=== PATIENT | male | born 1950 | race Caucasian/White ===

== ENCOUNTER 2016-05-02 07:57 | Outpatient (CLI) | payer OTHER ==
[2016-05-02 08:17] LABS: Hematocrit 44.2 % (42.0-52.0); Mean Platelet Volume 7.4 fL (7.4-10.4); Red Blood Cell (RBC) Count 4.85 mill/uL (4.70-6.10); White Blood Cell (WBC) Count 7.6 thou/uL (4.8-10.8)
[2016-05-02 08:33] LABS: ALT (SGPT) 11 U/L (0-55); AST (SGOT) 15 U/L (5-34); Alkaline Phosphatase 124 U/L (40-150); Anion Gap 13 mmol/L (10-20); BUN (Urea Nitrogen) 14 mg/dL (8.4-25.7); Bilirubin, Total 0.6 mg/dL (0.2-1.2); Calc. Creatinine Clearance 0 mL/min (70-130); Calcium 9.9 mg/dL (7.8-10.44); Carbon Dioxide 30 mmol/L (23-31); Chloride 102 mmol/L (98-107); Estimated GFR-MDRD 76; Globulin 3.2 g/dL (2.4-3.5); Protein, Total 7.4 g/dL (5.8-8.1)
== END 2016-05-02 07:58 | disposition home or self-care (01) ==
LOC: BURLAB 07:57
PROVIDERS: ATTEND Physician Assistant Medical
DX: B18.2 Chronic viral hepatitis C (principal)
CPT/HCPCS: 36415; 80053; 85027

== ENCOUNTER 2016-05-05 07:55 | Outpatient (CLI) | payer OTHER ==
--- NOTE | 2016-05-07 08:43 | MRI ---
MRI BRAIN WITH AND WITHOUT CONTRAST: Multiplanar, multisequential imaging of brain obtained. Postcontrast images obtained after administ ering IV MultiHance. Internal auditory canal protocol was followed. HISTORY: Asymmetric hearing loss. FINDINGS: Ventricles have normal size and position. No evidence of restricted diffusion. There are a few scattered white matter hyperintensities seen on FLAIR sequence which are unremarkabl e in a patient of this age, possibly representing mild ischemic white matter change. No evidence of infarct or mass. Images through the internal auditory canals show normal-appearing 7th and 8th cranial nerves. There is no abnormal enhancement. There is no evidence of acoustic schwannoma or other cerebellopontine angle mass lesion. The intracranial internal carotid arteries and proximal cerebral arteries show normal flow voids. The paranasal sinuses and mastoids appear clear. IMPRESSION: Unremarkable MRI of brain. Specifically, internal auditory canals are unremarkable with no evidence of acoustic schwannoma identified. POS: LM
== END 2016-05-05 07:56 | disposition home or self-care (01) ==
LOC: BURMRI 07:55
PROVIDERS: ATTEND Otolaryngology Plastic Surgery within the Head & Neck
DX: H90.5 Unspecified sensorineural hearing loss (principal)
CPT/HCPCS: 70553

== ENCOUNTER 2016-06-02 08:39 | Outpatient (CLI) | payer OTHER ==
[2016-06-02 09:24] LABS: Hematocrit 43.6 % (42.0-52.0); Mean Platelet Volume 7.7 fL (7.4-10.4); Red Blood Cell (RBC) Count 4.87 mill/uL (4.70-6.10); White Blood Cell (WBC) Count 7.8 thou/uL (4.8-10.8)
[2016-06-02 09:45] LABS: ALT (SGPT) 13 U/L (0-55); AST (SGOT) 16 U/L (5-34); Alkaline Phosphatase 128 U/L (40-150); Anion Gap 12 mmol/L (10-20); BUN (Urea Nitrogen) 16 mg/dL (8.4-25.7); Bilirubin, Total 0.4 mg/dL (0.2-1.2); Calc. Creatinine Clearance 0 mL/min (70-130); Calcium 9.5 mg/dL (7.8-10.44); Carbon Dioxide 28 mmol/L (23-31); Chloride 105 mmol/L (98-107); Estimated GFR-MDRD 87
[2016-06-02 10:46] LABS: Globulin 3.2 g/dL (2.4-3.5); Protein, Total 7.4 g/dL (5.8-8.1)
== END 2016-06-02 08:40 | disposition home or self-care (01) ==
LOC: BURLAB 08:39
PROVIDERS: ATTEND Physician Assistant Medical
DX: B18.2 Chronic viral hepatitis C (principal)
CPT/HCPCS: 36415; 80053; 85027; 87522

== ENCOUNTER 2016-08-25 08:55 | Outpatient (CLI) | payer OTHER | END 2016-08-25 08:56 | disposition home or self-care (01) | LOC: BURLAB 08:55 | PROVIDERS: ATTEND Physician Assistant Medical | DX: B18.2 Chronic viral hepatitis C (principal) | CPT/HCPCS: 36415; 87522 ==

== ENCOUNTER 2016-10-30 08:18 | Outpatient (CLI) | payer OTHER ==
[2016-10-30 18:59] LABS: Hep B Surf AB Non-Reactive (NonReactive)
== END 2016-10-30 08:19 | disposition home or self-care (01) ==
LOC: BURLAB 08:18
PROVIDERS: ATTEND Internal Medicine Gastroenterology
DX: B18.2 Chronic viral hepatitis C (principal)
CPT/HCPCS: 36415; 86706; 86708

== ENCOUNTER 2016-11-20 08:44 | Outpatient (CLI) | payer BC ==
[2016-11-20 17:33] LABS: HBSAg Index 0.21 S/CO (0-0.99); Hep B Surf Ag Non-Reactive S/CO (NonReactive)
== END 2016-11-20 08:45 | disposition home or self-care (01) ==
LOC: BURLAB 08:44
PROVIDERS: ATTEND Internal Medicine Gastroenterology
DX: B18.2 Chronic viral hepatitis C (principal)
CPT/HCPCS: 36415; 87340

== ENCOUNTER 2018-05-08 20:30 | Emergency (ER) | payer MEDICARE ==
[2018-05-08] MEDS ORDERED: Sulfameth/Trimethoprim DS 800-160mg TAB ONE (21:16)
== END 2018-05-08 21:25 | disposition home or self-care (01) ==
LOC: BURERS 20:30
DX: L02.811 Cutaneous abscess of head [any part, except face] (principal); K21.9 Gastro-esophageal reflux disease without esophagitis; I10 Essential (primary) hypertension; Z87.891 Personal history of nicotine dependence; Z79.899 Other long term (current) drug therapy
CPT/HCPCS: 10061; 87070; 87077; 87186; 87205

== ENCOUNTER 2018-10-20 09:07 | Outpatient (CLI) | payer MEDICARE ==
--- NOTE | 2018-10-25 07:42 | RAD ---
RIGHT HIP TWO VIEWS: 10/20/18 No fracture was seen. The joint space is somewhat narrow and there is a little bit of sclerosis on th e acetabular side of the joint. The articular surface of the femoral head is smooth. IMPRESSION: Mild arthritic change. POS: HOME
--- NOTE | 2018-10-25 07:44 | RAD ---
LEFT HIP TWO VIEWS: 10/20/18 No fracture or dislocation was seen. There is very minor joint space narrowing but really very little arthritic change overall. IMPRESSION: No acute finding. POS: HOME
== END 2018-10-20 09:08 | disposition home or self-care (01) ==
LOC: BURRAD 09:07
PROVIDERS: ATTEND Family Medicine
DX: M25.551 Pain in right hip (principal); M25.552 Pain in left hip; M16.12 Unilateral primary osteoarthritis, left hip

== ENCOUNTER 2020-11-20 13:31 | Emergency (ER) | payer MEDICARE ==
[~2020-11-20 13:31] MED LIST: Iopamidol 370 76% 100 ML VIAL ONE
[2020-11-20 13:54] LABS: #Basophils 0.1 thou/uL (0.0-0.2); #Eosinphils 0.2 thou/uL (0.0-0.7); #Lymphocytes 1.5 thou/uL (1.20-3.40); #Monocytes 0.8 thou/uL (0.11-0.59); #Neutrophils 5.8 thou/uL (1.40-6.50); %Basophils 1.6 % (0.0-1.0); %Eosinophils 2.6 % (0.0-10.0); %Lymphocytes 17.8 % (21.0-51.0); %Monocytes 9.8 % (0.0-10.0); %Neutrophils 68.2 % (42.0-75.0); Hemoglobin 14.9 g/dL (14.0-18.0); Mean Corpuscular HGB CONC 33.5 g/dL (32.0-36.0); Mean Corpuscular Hemoglobin 30.5 pg (27.0-31.0); Mean Corpuscular Volume 91.1 fL (78.0-98.0); Mean Platelet Volume 8.8 fL (7.4-10.4); Platelet Count 247 thou/uL (130-400); RBC Distribution Width 11.7 % (11.5-14.5); Red Blood Cell (RBC) Count 4.88 mill/uL (4.70-6.10); White Blood Cell (WBC) Count 8.5 thou/uL (4.8-10.8)
[2020-11-20] MEDS ORDERED: Ondansetron PF 4 MG/2 ML Vial ONE (13:54)
[2020-11-20 14:13] LABS: ALT (SGPT) 14 U/L (8-55); AST (SGOT) 15 U/L (5-34); Albumin 4.1 g/dL (3.4-4.8); Alkaline Phosphatase 109 U/L (40-110); Anion Gap 13 mmol/L (10-20); BUN (Urea Nitrogen) 15 mg/dL (8.4-25.7); Bilirubin, Total 0.4 mg/dL (0.2-1.2); Calc. Creatinine Clearance 0 mL/min (70-130); Calcium 9.4 mg/dL (7.8-10.44); Carbon Dioxide 28 mmol/L (23-31); Chloride 102 mmol/L (98-107); Globulin 2.8 g/dL (2.4-3.5); Glucose 121 mg/dL (80-115); Potassium 3.7 mmol/L (3.5-5.1); Protein, Total 6.9 g/dL (5.8-8.1); Sodium 139 mmol/L (136-145)
[2020-11-20 15:42] LABS: Bilirubin Negative (Negative); Blood, Urine Negative (Negative); Clarity Clear (Clear); Glucose, Urine (Dipstick) Negative (Negative); Ketone, Urine Negative (Negative); Leukocyte Negative (Negative); Nitrite Negative (Negative); Protein, Urine (Dipstick) Negative (Neg-Trace); Urobilinogen 0.2 mg/dL (Less than 2)
[2020-11-20 15:43] LABS: Specific Gravity, Urine Greater than 1.050 (1.002-1.036)
== END 2020-11-20 15:50 | disposition short-term general hospital (02) ==
LOC: BURERS 13:31
DX: R10.11 Right upper quadrant pain (principal); K21.9 Gastro-esophageal reflux disease without esophagitis; I10 Essential (primary) hypertension; Z87.891 Personal history of nicotine dependence
CPT/HCPCS: 74177; 80053; 81003; 83690; 84484; 85025; 93005; 96372; 96374; J0500; J2405; Q9967

== ENCOUNTER 2023-01-22 09:55 | Observation (INO) | payer MEDICARE ==
[2023-01-22] MEDS ORDERED: Ondansetron PF 4 MG/2 ML Vial ONE (10:23)
[2023-01-22 10:27] LABS: #Basophils 0.1 thou/uL (0.0-0.2); #Lymphocytes 1.2 thou/uL (1.20-3.40); #Monocytes 1.6 thou/uL (0.11-0.59); %Eosinophils 0.1 % (0.0-10.0); %Lymphocytes 9.2 % (21.0-51.0); %Monocytes 12.6 % (0.0-10.0); %Neutrophils 77.1 % (42.0-75.0); Hematocrit 46.5 % (42.0-52.0); Hemoglobin 15.4 g/dL (14.0-18.0); Mean Corpuscular HGB CONC 33.2 g/dL (32.0-36.0); Mean Corpuscular Hemoglobin 29.4 pg (27.0-31.0); Mean Corpuscular Volume 88.6 fl (78.0-98.0); Mean Platelet Volume 7.9 fL (7.4-10.4); Platelet Count 276 10x3/uL (130-400); RBC Distribution Width 11.5 % (11.5-14.5); Red Blood Cell (RBC) Count 5.25 mill/uL (4.70-6.10)
[2023-01-22 10:37] LABS: ALT (SGPT) 27 U/L (8-55); AST (SGOT) 24 U/L (5-34); Albumin 4.4 g/dL (3.4-4.8); Alkaline Phosphatase 102 U/L (40-110); Anion Gap 19 mmol/L (10-20); BUN (Urea Nitrogen) 26 mg/dL (8.4-25.7); Bilirubin, Total 0.5 mg/dL (0.2-1.2); Calc. Creatinine Clearance 0 mL/min (70-130); Calcium 9.8 mg/dL (7.8-10.44); Carbon Dioxide 23 mmol/L (23-31); Chloride 94 mmol/L (98-107); Estimated GFR 43; Globulin 3.5 g/dL (2.4-3.5); Glucose 137 mg/dL (80-115); Lipase 23 U/L (8-78); Potassium 3.3 mmol/L (3.5-5.1); Protein, Total 7.9 g/dL (5.8-8.1); Sodium 133 mmol/L (136-145)
[2023-01-22 10:39] LABS: Troponin I Less than 0.010 ng/mL (< 0.028)
[2023-01-22] MEDS ORDERED: Mag-Al Plus 1200 MG/1200 MG/120 MG/30 ML UDCUP ONE (11:14)
[2023-01-22] MEDS ORDERED: Morphine 4 MG/ML VIAL ONE (11:14)
[2023-01-22] MEDS ORDERED: Lidocaine 2% Viscous Solution 10 ML, Mag Hydrox/Al Hydrox/Simeth 30 ML SSP SCH (11:30)
[2023-01-22] MEDS ORDERED: Morphine 4 MG/ML VIAL SLOW IVP PRN (12:43)
[2023-01-22] MEDS: Lactated Ringer's 1,000 ML IV SCH ×2 (12:45→18:35)
[2023-01-22] MEDS ORDERED: Ondansetron PF 4 MG/2 ML Vial IVP PRN (12:45)
[2023-01-22] MEDS ORDERED: Ondansetron ODT 4 MG TAB SL PRN (12:45)
[2023-01-22] MEDS ORDERED: Acetaminophen 325 MG TAB PO PRN (12:45)
[2023-01-22 12:51] VITALS: BMI 32.6
[2023-01-22] MEDS ORDERED: Dicyclomine 20 MG TAB PO PRN (14:57)
[2023-01-22] MEDS ORDERED: Albuterol 200 PUFF (6.7GM INHALER) INH PRN (14:57)
[2023-01-22] MEDS ORDERED: Loratadine 10 MG TAB PO PRN (14:57)
[2023-01-22] MEDS ORDERED: Acetaminophen 500 MG TAB PO PRN (14:57)
[2023-01-22] MEDS ORDERED: Ipratropium Bromide 2.5 ml Neb NEB PRN (14:57)
[2023-01-22] MEDS ORDERED: Potassium Chloride 20 MEQ TAB PO SCH (17:45)
[2023-01-22] MEDS: Simethicone Chewable 80 MG TAB PO SCH ×2 (18:35→21:29)
[2023-01-22 20:48] LABS: Bilirubin Negative (Negative); Blood, Urine Trace (Negative); Glucose, Urine (Dipstick) Negative (Negative); Ketone, Urine Negative (Negative); Leukocyte Negative (Negative); Nitrite Negative (Negative); Protein, Urine (Dipstick) 100 mg/dL (Neg-Trace); Urobilinogen 0.2 mg/dL (Less than 2)
[2023-01-22 20:50] LABS: Clarity Hazy (Clear); Specific Gravity, Urine 1.022 (1.002-1.036)
[2023-01-22 20:51] LABS: Bacteria/HPF 2+ HPF (None Seen); RBC/HPF None Seen HPF (0-3); Squamous Epithelial 0-3 HPF (0-3); WBC/HPF 0-3 HPF (0-3)
[2023-01-22 20:52] LABS: Mucous/LPF 1+ LPF (<2+)
[2023-01-22] MEDS ORDERED: Amitriptyline HCl 25 MG TAB PO SCH (21:00)
[2023-01-22] MEDS: Mometasone/Formoterol 60 PUFF AER INH SCH (21:30)
[2023-01-23 05:43] LABS: ALT (SGPT) 23 U/L (8-55); AST (SGOT) 23 U/L (5-34); Albumin 3.2 g/dL (3.4-4.8); Alkaline Phosphatase 70 U/L (40-110); Anion Gap 12 mmol/L (10-20); BUN (Urea Nitrogen) 16 mg/dL (8.4-25.7); Bilirubin, Total 0.3 mg/dL (0.2-1.2); Calc. Creatinine Clearance 104 mL/min (70-130); Calcium 8.5 mg/dL (7.8-10.44); Carbon Dioxide 25 mmol/L (23-31); Chloride 102 mmol/L (98-107); Estimated GFR 91; Globulin 2.5 g/dL (2.4-3.5); Glucose 123 mg/dL (80-115); Hemoglobin 12.4 g/dL (14.0-18.0); Mean Corpuscular HGB CONC 33.5 g/dL (32.0-36.0); Mean Corpuscular Hemoglobin 29.9 pg (27.0-31.0); Mean Corpuscular Volume 89.4 fl (78.0-98.0); Mean Platelet Volume 7.4 fL (7.4-10.4); Platelet Count 219 10x3/uL (130-400); Potassium 3.2 mmol/L (3.5-5.1); Protein, Total 5.7 g/dL (5.8-8.1); RBC Distribution Width 11.4 % (11.5-14.5); Red Blood Cell (RBC) Count 4.14 mill/uL (4.70-6.10); Sodium 136 mmol/L (136-145); White Blood Cell (WBC) Count 9.7 10x3/uL (4.8-10.8)
[2023-01-23 06:20] LABS: Band 18 % (5-11); Lymphocytes 6 % (21-51); MDiff Complete? YES; Monocytes 8 % (0-10); Neutrophil 68 % (42-75); Platelet Adequacy Comment Appears Adequate
[2023-01-23] MEDS ORDERED: Potassium Chloride 20 MEQ TAB PO SCH (07:00)
[2023-01-23] MEDS: Simethicone Chewable 80 MG TAB PO SCH (08:41)
[2023-01-23] MEDS: Mometasone/Formoterol 60 PUFF AER INH SCH (08:44)
[2023-01-23] MEDS ORDERED: Valsartan 80 MG TAB PO SCH (09:00)
[2023-01-23] MEDS ORDERED: Saccharomyces boulardii 250 MG CAP PO SCH (09:00)
[2023-01-23] MEDS ORDERED: Hydrochlorothiazide 25 MG TAB PO SCH (09:00)
[2023-01-23] MEDS ORDERED: Multivit, Therapeutic 1 TAB PO SCH (09:00)
[2023-01-23 13:38] LABS: Campy jejuni + coli by PCR Negative (Negative); STEC Shiga Toxin 1+2 Negative (Negative); Salmonella spp. by PCR POSITIVE (Negative); Shigella spp + EIEC by PCR Negative (Negative)
[2023-01-23 14:14] VITALS: BP 107/63; TEMP 97.8
[2023-01-25] MEDS ORDERED: FLU VACC QS2023(65UP)/MF59C/PF 60 MCG/0.5 ML SYRINGE IM ONE (13:30)
== END 2023-01-23 14:00 | disposition home or self-care (01) ==
LOC: BURERS 09:55 → BURMED 11:15 → UNDOADMOB 12:04 → BURMED 12:04
PROVIDERS: ADMIT Family Medicine; ATTEND Family Medicine
DX: E86.0 Dehydration (principal); K52.9 Noninfective gastroenteritis and colitis, unspecified; R79.89 Other specified abnormal findings of blood chemistry; E87.1 Hypo-osmolality and hyponatremia; E87.6 Hypokalemia; I10 Essential (primary) hypertension; J44.9 Chronic obstructive pulmonary disease, unspecified; M19.90 Unspecified osteoarthritis, unspecified site; Z90.49 Acquired absence of other specified parts of digestive tract; Z87.891 Personal history of nicotine dependence; Z88.5 Allergy status to narcotic agent; Z88.8 Allergy status to other drugs, medicaments and biological substances; Z79.899 Other long term (current) drug therapy
CPT/HCPCS: 74176; 80053 ×2; 81001; 83605; 83690; 84484; 85025 ×2; 87505; 93005; 94664; 96361; 96374; 96375; 99285; G0378 ×2; 36415; J2270; J2405; J7120